=== PATIENT | female | born 1970 | race Caucasian/White ===

== ENCOUNTER 2024-02-22 13:02 | Emergency (ER) | payer BC ==
[~2024-02-22] VITALS: Ht 170.2 cm; Wt 68.2 kg
[2024-02-22 13:03] VITALS: BP 91/62; PULSE 77; TEMP 96.8; O2SAT 100
[2024-02-22] MEDS: ketorolac tromethamine 15mg/ml inj. IV ONE (15:29)
[2024-02-22] MEDS: normal saline 1000ml 1,000 ML IV ONE (15:29)
[2024-02-22 16:01] VITALS: RESP 16
== END 2024-02-22 17:08 | disposition home or self-care (01) ==
LOC: ER 13:02
DX: T67.5XXA Heat exhaustion, unspecified, initial encounter (principal); S40.012A Contusion of left shoulder, initial encounter; S70.02XA Contusion of left hip, initial encounter; Z88.0 Allergy status to penicillin; Z88.8 Allergy status to other drugs, medicaments and biological substances; W18.39XA Other fall on same level, initial encounter; Y93.89 Activity, other specified; Y92.89 Other specified places as the place of occurrence of the external cause; Y99.8 Other external cause status
CPT/HCPCS: 73030; 73502; 96361; 96374; 99284; J1885; J7030